=== PATIENT | male | born 1980 | race Caucasian/White ===

== ENCOUNTER 2017-02-04 09:40 | Emergency (ER) | payer BC ==
--- NOTE | ~2017-02-04 | CT4 ---
[facility] Service of [facility] RADIOLOGY TEXT RESULTS PATIENT: MARNI GARY JR LOCATION: [facility] : 84 UNIT #: [id number] AGE: [address]: Caity Walker SEX: M ORDER DR: [id number] [facility] [address] [place], [place] [address] [id number] E MR#: [id number] Acc #: [id number] NAME: MARNI GARY JR : 1980 SEX: M STUDY DATE/TIME: 02/04/2017 8:41 UNIT: [facility] ROOM: STUDY DESCRIPTION: CT Abd and Pelv Wo Cont Attending Physician: Caity Walker P.A.-C. Ordering Physician: Caity Walker P.A.-C. Primary Care Physician: Chip Sarah MEDICAL IMAGING REPORT This report is preliminary unless electronic signature is present EXAM CT abdomen and pelvis without contrast INDICATIONS Right flank pain for the past [address] of the abdomen and pelvis. This CT exam was performed with one or more of the following radiation dose reduction techniques: automatic exposure control, adjustment of mA and/or kV according to patient size, and iterative reconstruction. COMPARISON 03/17/2010 FINDINGS Abdomen without contrast: Included lung bases are clear. The liver, spleen, adrenal glands, pancreas, gallbladder have an unremarkable unenhanced appearance. Bowel loops are nondilated appendix is normal. There is a 6 mm calculus at the right UPJ. Minimal right hydronephrosis. Small nonobstructing calculi in the right kidney. There are nonobstructing calculi in the left kidney, largest measuring up to 9 mm. Pelvis without contrast: No radiodense bladder calculus. No pelvic mass or fluid. No aggressive appearing bone lesion. IMPRESSION 1. 6 mm calculus in the right UPJ. Mild hydronephrosis. 2. Bilateral nonobstructing renal calculi. [facility] of [facility] RADIOLOGY TEXT RESULTS PATIENT: MARNI GARY JR [facility]: [id number] : [birth year] UNIT #: [id number] AGE: [address]: Caity Walker SEX: M ORDER DR: Dictated by... Haris Hunt M.D. THIS IS AN ELECTRONICALLY VERIFIED REPORT Haris Hunt M.D. at 02/07/2017 7:41 AM Cezar TD: 02/04/2017 11:07 JOB #: [id number] MEDICAL IMAGING REPORT Page 1 of 1 COPY
[2017-02-04 08:49] LABS: BASOPHIL# 0.1 X10e3 (0-0.3); EOSINOPHIL# 0.2 X10e3 (0-0.7); EOSINOPHIL% 2.2 % (0.0-7.0); HEMATOCRIT 44.7 % (38.0-50.0); LYMPHOCYTE# 1.2 X10e3 (1.0-3.5); LYMPHOCYTE% 15.3 % (17.0-45.0); MEAN CELL VOLUME 87.3 FL (83-96); MEAN CORPUSCULAR HEMOGLOBIN 29.2 PG (28-34); MEAN CORPUSCULAR HGB CONC 33.5 g/dL (30-36); MEAN PLATELET VOLUME 8.9 FL (6.5-11.5); MONOCYTE# 0.5 X10e3 (0-1.0); MONOCYTE% 6.4 % (3.0-12.0); NEUTROPHIL# 6.1 X10e3 (1.5-7.1); NEUTROPHIL% 75.1 % (40-75); PLATELET COUNT 234 X10e3 (140-420); RED BLOOD COUNT 5.12 X10e (3.90-5.60); RED CELL DISTRIBUTION WIDTH 13.3 % (11.0-15.5); WHITE BLOOD COUNT 8.1 X10e3 (4.0-10.5)
[2017-02-04 08:50] LABS: DIFF IND NO
[2017-02-04 09:09] LABS: BUN/CREATININE RATIO 13.33; CALCIUM SERUM 8.9 mg/dL (8.4-10.2); CREATININE SERUM 1.2 mg/dL (0.6-1.4); GLOM FILT RATE Estimated 78.4 mL/min (>60); POTASSIUM 3.8 mmol/L (3.5-5.1)
[~2017-02-04 09:40] MED LIST: BACTRIM DS TABL1 TA1; FLOMAX0.4 M1 PO; TYLOX 5/500 CAP1 CAP PO; VICODIN 5/1 TAB 5/50
[2017-02-04 11:17] LABS: URINE APPEARANCE CLEAR; URINE BILIRUBIN NEG (NEG); URINE BLOOD 3+ (NEG); URINE COLOR YELLOW; URINE GLUCOSE NEG (NEG); URINE KETONE NEG (NEG); URINE LEUKOCYTE ESTERASE NEG (NEG); URINE NITRATE NEG (NEG); URINE PH 6.5 (5-8); URINE PROTEIN NEG (NEG); URINE SPECIFIC GRAVITY 1.022 (1.003-1.035)
[2017-02-04 11:20] LABS: URBCS1 AUWI 25-50 /[HPF] (0-2); URINE BACTERIA AUWI NEG (NEGATIVE); URINE SQUAMOUS EPITHELIAL CELL NONE SEEN /[HPF]; UWBCS1 AUWI 0-2 (0-5)
[2017-02-04 11:23] LABS: CULTURE INDICATED? NO; URINE SOURCE CATH
[2017-05-20] MEDS ORDERED: FLOMAX0.4 M1 PO (06:37)
== END 2017-02-04 11:53 | disposition home or self-care (01) ==
LOC: CED 09:40
PROVIDERS: Physician Assistant
DX: R63.0 Anorexia (principal); Z87.891 Personal history of nicotine dependence; N20.0 Calculus of kidney
CPT/HCPCS: 36415; 51702; 74176; 80048; 81003; 85025; 96361; 96374; 96375; 99284; J1885; J2270; J2405

== ENCOUNTER 2017-02-08 22:58 | Emergency (ER) | payer BC ==
[2017-05-20] MEDS ORDERED: FLOMAX0.4 M1 PO (06:37)
== END 2017-02-09 00:12 | disposition home or self-care (01) ==
LOC: CED 22:58
DX: K59.00 Constipation, unspecified (principal); R11.2 Nausea with vomiting, unspecified; Z87.442 Personal history of urinary calculi
CPT/HCPCS: 99283

== ENCOUNTER → 2017-03-01 | Outpatient (CLI) | payer BC ==
--- NOTE | ~2017-03-01 | CR7 ---
[facility] A Service of [facility] & [facility] RADIOLOGY TEXT RESULTS PATIENT: MARNI GARY JR LOCATION: [facility] : 82 UNIT #: [id number] AGE: [address]: Brennan Swain MD SEX: M ORDER DR: [id number] [facility] [address] [place], [place] [address] [id number] O MR#: [id number] Acc #: [id number] NAME: MARNI GARY : 1980 SEX: M STUDY DATE/TIME: 03/01/2017 10:12 UNIT: [facility] ROOM: STUDY DESCRIPTION: CR Abdomen Single AP View Attending Physician: Brennan Swain M.D. Referring Physician: Brennan Swain M.D. Ordering Physician: Brennan Swain M.D. Primary Care Physician: Chip Sarah M.D. MEDICAL IMAGING REPORT This report is preliminary unless electronic signature is present EXAM Abdomen INDICATION Followup kidney stones. Right flank pain. History of right kidney stone. Symptoms began February 04. COMPARISON CT scan 02/04/2017 FINDINGS Supine view of the abdomen was obtained. The bowel gas pattern is normal. 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 It is no longer visible in that region on the plain film. There is a stone in the lower pole of the left kidney measuring about 6.0 mm in diameter. There is a stable phlebolith in the pelvis on the right side about 1.0 cm away from the pubic ramus. There is a 6.0 mm probable stone visualized in the right side of pelvis near the sacrum most likely representing a distal ureteral stone. IMPRESSION There is a 6.0 mm calcification in the lower right abdomen just lateral to the sacrum which is likely the small stone that was previously located in the proximal right ureter. There is also phlebolith present in the right pelvis which is stable and there is a stable 6.0 mm stone in the left kidney. There may be a second fainter stone present just above the 6.0 mm stone in the distal right ureter. This could also possibly represent the calculus that was present in the lower pole of the right kidney on the previous CT scan. Dictated by... Nickolas Villegas M.D. [facility] A Service of [facility] RADIOLOGY TEXT RESULTS PATIENT: MARNI GARY JR LOCATION: [facility] : 84 UNIT #: [id number] AGE: [address]: Brennan Swain MD SEX: M ORDER DR: THIS IS AN ELECTRONICALLY VERIFIED REPORT Nickolas Villegas M.D. at 03/01/2017 3:55 PM Doc TD: 03/01/2017 14:36 JOB #: [id number] MEDICAL IMAGING REPORT Page 1 of 1 COPY
== END | disposition home or self-care (01) ==
LOC: CRAD 09:57
DX: N20.0 Calculus of kidney (principal); I87.8 Other specified disorders of veins
CPT/HCPCS: 74000

== ENCOUNTER → 2017-05-13 | Outpatient (CLI) | payer BC ==
--- NOTE | ~2017-05-13 | CR7 ---
[facility] A Service of [facility] & [facility] RADIOLOGY TEXT RESULTS PATIENT: MARNI GARY JR LOCATION: [facility] : 84 UNIT #: [id number] AGE: [address]: Brennan Swain MD SEX: M ORDER DR: [id number] [facility] [address] [place], [place] [address] [id number] O MR#: [id number] Acc #: [id number] NAME: MARNI GARY : 1980 SEX: M STUDY DATE/TIME: 05/13/2017 10:23 UNIT: [facility] ROOM: STUDY DESCRIPTION: CR Abdomen Single AP View Attending Physician: Brennan Swain M.D. Ordering Physician: Brennan Swain M.D. MEDICAL IMAGING REPORT This report is preliminary unless electronic signature is present EXAM Abdomen, single view, 05/13/2017, 1023 hours. CLINICAL HISTORY 37-year-old man with 2-3 month history of kidney stones, abdominal pain for followup of lithotripsy performed March 2017. COMPARISON 03/01/[address] scan, 02/04/2017. FINDINGS Supine view of the abdomen and an additional view of the pelvis are performed. No radiopaque calculi are seen over the kidneys or expected course of the right ureter. Previous stones in the distal right ureter on 03/01/2017 are no longer seen. There is a single lower right pelvic phlebolith. On the left side, they are 2 small phleboliths present and a new calcification measuring 8 mm not seen on 03/01/2017 abdominal film nor on the CT scan of 02/04/2017. IMPRESSION 1. No stones are seen over the kidneys. 2. The 2 previous stones projecting over the distal right ureter on plain film, 03/01/2017, are no longer seen. There is a single phlebolith in the lower right pelvis. 3. There is a new 7-8 mm calcification in the lower left pelvis not present on plain film, 03/01/2017, or CT scan, 02/04/2017, suspicious for a distal left ureteral calculus. STAT * RESULT Dictated by... Cheyenne Montano M.D. [facility] A Service of [facility] & [facility] RADIOLOGY TEXT RESULTS PATIENT: MARNI GARY JR LOCATION: [facility] #: [id number] : 84 UNIT #: [id number] AGE: [address]: Brennan Swain MD SEX: M ORDER DR: THIS IS AN ELECTRONICALLY VERIFIED REPORT Cheyenne Montano M.D. at 05/13/2017 2:30 PM JEMAL/jose antonio TD: 05/13/2017 12:08 JOB #: [id number] MEDICAL IMAGING REPORT Page 1 of 1 COPY
== END | disposition home or self-care (01) ==
LOC: CRAD 10:01
DX: N20.0 Calculus of kidney (principal); I87.8 Other specified disorders of veins
CPT/HCPCS: 74000

== ENCOUNTER → 2017-05-19 | Outpatient (CLI) | payer BC ==
[2017-05-19 18:59] LABS: HEMOGLOBIN 12.7 gm/dL (13.0-16.0); MEAN CELL VOLUME 86.6 FL (83-96); MEAN CORPUSCULAR HEMOGLOBIN 29.1 PG (28-34); MEAN CORPUSCULAR HGB CONC 33.6 g/dL (30-36); MEAN PLATELET VOLUME 8.3 FL (6.5-11.5); RED BLOOD COUNT 4.38 X10e (3.90-5.60); RED CELL DISTRIBUTION WIDTH 14.1 % (11.0-15.5); WHITE BLOOD COUNT 9.8 X10e3 (4.0-10.5)
[2017-05-19 19:22] LABS: ALBUMIN SERUM 4.5 g/dL (3.5-5.0); BILIRUBIN,TOTAL 0.5 mg/dL (0.2-2.0); BUN/CREATININE RATIO 14.44; CALCIUM SERUM 9.3 mg/dL (8.4-10.2); CREATININE SERUM 1.8 mg/dL (0.6-1.4); GLOM FILT RATE Estimated 47.7 mL/min (>60); POTASSIUM 3.6 mmol/L (3.5-5.1); PROTEIN TOTAL SERUM 7.9 g/dL (6.0-8.3)
== END | disposition home or self-care (01) ==
LOC: CLAB 18:36
PROVIDERS: Urology
DX: N20.1 Calculus of ureter (principal)
CPT/HCPCS: 36415; 80053; 85027

== ENCOUNTER → 2017-05-20 | Day surgery (SDC) | payer BC ==
--- NOTE | ~2017-05-20 | OR ---
Unit #: [id number] #: [id number] Patient: MARNI GARY JR [id number] [address] [address] [id number] O MR#: [id number] NAME: MARNI GARY JR ROOM: Date of Procedure: 05/20/2017 Admission Date: 05/20/2017 Surgeon: Brennan Swain M.D. : 1980 Attending Physician: Brennan Swain M.D. Primary Care Physician: Chip Sarah M.D. OPERATIVE REPORT PREOPERATIVE DIAGNOSES Left ureteral stone and hydronephrosis. POSTOPERATIVE DIAGNOSES Left ureteral stone and hydronephrosis. PROCEDURES PERFORMED Cystoscopy, left ureteroscopy, laser lithotripsy, basket extraction, and stent placement. ANESTHESIA General. DESCRIPTION OF PROCEDURE After informed consent, he was taken to the operating room, placed under general anesthetic, and positioned in lithotomy. Penis and perineum were prepped and draped in the usual sterile fashion. Cystoscopy showed normal urethra and bladder. There were no tumors, no stones, no diverticula. The entire bladder was inspected. Using a Sensor wire, the left ureter was cannulated under fluoroscopy and direct vision. Rigid ureteroscopy was performed and the stone was right at the UVJ, large stone. Using laser, the stone was broken up into smaller pieces. The pieces were extracted. A 5 x 28 stent was placed with the tether left attached. There was a good coil in the bladder and the collecting system. There were no evidence of stones in the proximal and mid ureter with inspection. The patient will return to the office as an outpatient for stent removal. He tolerated the procedure well. Dictated by... Faiza Bah/terelll TD: 05/20/2017 14:05 JOB #: [id number] Unit #: [id number] #: [id number] Patient: MARNI GARY JR OPERATIVE REPORT Page 1 of 1 X Brennan Swain MD PROCEDURE OPERATIVE NOTE
== END | disposition home or self-care (01) ==
LOC: CSUR 06:12
PROVIDERS: Urology
DX: N13.2 Hydronephrosis with renal and ureteral calculous obstruction (principal)
CPT/HCPCS: 82365; 88300; C1758; C2617; J0360; J0690; J1885; J2250; J2405; J3010

== ENCOUNTER → 2017-06-03 | Outpatient (CLI) | payer BC ==
--- NOTE | ~2017-06-03 | US77 ---
[facility] RADIOLOGY TEXT RESULTS PATIENT: MARNI GARY JR LOCATION: [facility] : 84 UNIT #: [id number] AGE: [address]: Brennan Swain MD SEX: M ORDER DR: [id number] [facility] [address] [place], [place] [address] [id number] O MR#: [id number] Acc #: [id number] NAME: MARNI GARY : 1980 SEX: M STUDY DATE/TIME: 06/03/2017 15:54 UNIT: [facility] ROOM: STUDY DESCRIPTION: US Kidney Bilateral Complete Attending Physician: Brennan Swain M.D. Referring Physician: Brennan Swain M.D. Ordering Physician: Brennan Swain M.D. Primary Care Physician: Chip Sarah M.D. MEDICAL IMAGING REPORT This report is preliminary unless electronic signature is present EXAM Renal ultrasound bilateral 06/03/2017 HISTORY Follow up kidney stones. Patient underwent lithotripsy of kidney stones 2 weeks ago. Lithotripsy 3 x this year. FINDINGS The right kidney measures 11.8 cm while the left kidney measures 11.8 cm in longitudinal dimensions. There is no evidence of hydronephrosis. There are nonobstructing renal stones bilaterally. No cystic or solid mass lesions are seen on either kidney. There is normal renal cortical echogenicity. Images of the bladder are normal. IMPRESSION 1. Nonobstructing renal stones bilaterally. No evidence of hydronephrosis. 2. Images of the bladder are normal. Dictated by... Hank French M.D. THIS IS AN ELECTRONICALLY VERIFIED REPORT Hank French M.D. at 06/04/2017 12:10 PM RHIANNON/rebekah TD: 06/04/2017 08:04 JOB #: [id number] MEDICAL IMAGING REPORT Page 1 of 1 COPY
[2017-06-03 16:10] LABS: BUN/CREATININE RATIO 16.42; CALCIUM SERUM 8.9 mg/dL (8.4-10.2); CREATININE SERUM 1.4 mg/dL (0.6-1.4); GLOM FILT RATE Estimated 64.7 mL/min (>60); POTASSIUM 3.9 mmol/L (3.5-5.1)
== END | disposition home or self-care (01) ==
LOC: CGUS 15:29
PROVIDERS: Urology
DX: N20.0 Calculus of kidney (principal)
CPT/HCPCS: 36415; 76770; 80048